=== PATIENT | female | born 1970 | race Two or more races ===

== ENCOUNTER 2022-05-20 15:09 | Emergency (ER) | payer MEDICAID ==
[~2022-05-20] VITALS: Ht 154.9 cm; Wt 101.1 kg
[2022-05-20 18:45] VITALS: BP 135/78
[2022-05-20] MEDS ORDERED: DICL75TA2 PO (20:18)
== END 2022-05-20 20:32 | disposition home or self-care (01) ==
LOC: ER 15:13
DX: S50.01XA Contusion of right elbow, initial encounter (principal); M79.671 Pain in right foot; W20.8XXA Other cause of strike by thrown, projected or falling object, initial encounter; Y93.89 Activity, other specified; Y92.89 Other specified places as the place of occurrence of the external cause; Y99.8 Other external cause status
CPT/HCPCS: 73080; 73630

== ENCOUNTER 2022-12-01 21:12 | Inpatient (IN) | payer MEDICAID ==
[~2022-12-01] VITALS: Ht 154.9 cm; Wt 106.3 kg
[~2022-12-01 21:12] MED LIST: DICL75TA2 PO
[2022-12-01 21:39] LABS: Basophils # (auto) 0 10 ^3/uL (0-0.2); Basophils % (auto) 0.6 % (0.0-2.0); Eosinophils # (auto) 0.1 10 ^3/uL (0-0.8); Eosinophils % (auto) 1.5 % (0.0-7.0); Hematocrit 37.7 % (36.0-46.0); Lymphocytes # (auto) 3.1 10 ^3/uL (0.4-5.4); Lymphocytes % (auto) 40.6 % (10.0-50.0); Mean Corpuscular Hemoglobin 30.7 pg (28.0-32.0); Mean Corpuscular Hgb Conc. 34.5 g/dL (32.0-36.0); Mean Corpuscular Volume 88.9 fL (80.0-100.0); Monocytes # (auto) 0.4 10 ^3/uL (0-1.3); Monocytes % (auto) 5.1 % (0.0-12.0); Neutrophils # (auto) 3.9 10 ^3/uL (1.6-8.6); Neutrophils % (auto) 52.2 % (37.0-80.0); Nucleated Red Blood Cells % 0.2 %; Red Blood Cells 4.24 10^6/uL (4.0-5.20); Red Cell Distribution Width 13.3 % (11.8-14.3); White Blood Cell 7.5 10^3/uL (4.4-10.8)
[2022-12-01 21:55] LABS: Albumin 3.6 g/dL (3.4-5.0); BUN/Creatinine Ratio 21.9; Calcium 8.8 mg/dL (8.5-10.1); Potassium 3.1 mmol/L (3.5-5.1)
[2022-12-01 21:58] LABS: Bilirubin, Total 0.9 mg/dL (0.2-1.0); Total Protein 7.3 g/dL (6.4-8.2)
[2022-12-01 22:04] LABS: INR 1.08 (0.9-1.15); Partial Thromboplastin Time 32.7 sec (24.6-33.4)
[2022-12-01] MEDS ORDERED: POTASSIUM CHLORIDE 20 MEQ in D5W/LACTATED RINGERS 1,000 ML IV SCH (22:45)
[2022-12-01] MEDS ORDERED: LACTATED RINGER'S 1,000 ML IV ONE (23:15)
[2022-12-01] MEDS ORDERED: POTASSIUM EFFERVESENT TAB 25 MEQ PO ONE (23:15)
[2022-12-02] MEDS ORDERED: NITROGLYCERIN 0.4 MG SL TAB SL PRN (06:15)
[2022-12-02] MEDS ORDERED: HYDROcodone-ACET 5/325MG TAB PO PRN (06:15)
[2022-12-02] MEDS ORDERED: DOCUSATE SOD 100 MG CAP PO PRN (06:15)
[2022-12-02] MEDS ORDERED: ACETAMINOPHEN 325 MG TAB PO PRN (06:15)
[2022-12-02] MEDS ORDERED: MORPHINE SULFATE INJ 2 MG/ml SYRG IV PRN ×2 (06:15)
[2022-12-02] MEDS ORDERED: ONDANSETRON HCL 4 MG/2 ML VIAL IV PRN (06:15)
[2022-12-02 06:18] LABS: Albumin 3.2 g/dL (3.4-5.0); Calcium 8.8 mg/dL (8.5-10.1); Potassium 3.3 mmol/L (3.5-5.1)
[2022-12-02 06:20] LABS: BUN/Creatinine Ratio 19.6
[2022-12-02 06:23] LABS: Bilirubin, Total 1.1 mg/dL (0.2-1.0); Total Protein 6.8 g/dL (6.4-8.2)
[2022-12-02 07:39] LABS: Basophils # (auto) 0 10 ^3/uL (0-0.2); Basophils % (auto) 0.2 % (0.0-2.0); Eosinophils # (auto) 0.1 10 ^3/uL (0-0.8); Eosinophils % (auto) 2.1 % (0.0-7.0); Hematocrit 37.1 % (36.0-46.0); Hemoglobin 12.6 g/dL (12.2-16.2); Lymphocytes % (auto) 48.7 % (10.0-50.0); Mean Corpuscular Hemoglobin 30.4 pg (28.0-32.0); Mean Corpuscular Volume 89.5 fL (80.0-100.0); Monocytes # (auto) 0.5 10 ^3/uL (0-1.3); Monocytes % (auto) 7.2 % (0.0-12.0); Neutrophils # (auto) 2.6 10 ^3/uL (1.6-8.6); Neutrophils % (auto) 41.8 % (37.0-80.0); Nucleated Red Blood Cells % 0.3 %; Red Blood Cells 4.14 10^6/uL (4.0-5.20); Red Cell Distribution Width 13.3 % (11.8-14.3); White Blood Cell 6.2 10^3/uL (4.4-10.8)
[2022-12-02] MEDS: ASPirin 81 mg TAB PO SCH (10:19)
[2022-12-02] MEDS: FAMOTIDINE (10MG/ML) 2ML VL IV SCH ×2 (10:19→21:28)
[2022-12-02] MEDS: amLODIPine BESYLATE 5 MG TAB PO SCH (10:21)
[2022-12-02] MEDS: SODIUM CHLOR 0.9% PF (SALINE LOCK) 10ML VIAL/SYR IV SCH ×2 (13:34→21:28)
[2022-12-02] MEDS ORDERED: POTASSIUM CHL 20 Meq TABLET PO ONE (17:30)
[2022-12-02 20:25] LABS: Urine Bacteria NONE SEEN /hpf (None Seen); Urine Blood Negative /uL (Negative); Urine Mucus FEW (None Seen); Urine Specific Gravity 1.016 (1.001-1.035); Urine WBC 5 /hpf (0 - 5)
[2022-12-02 21:22] LABS: Alcohol, Urine < 3.0 mg/dL (0-10); Amphetamine Screen, Urine NEGATIVE (NEGATIVE); Barbiturate Scree,Urine NEGATIVE (NEGATIVE); Benzodiazephine Screen, Urine NEGATIVE (NEGATIVE); Cannabinoid Screen, Urine NEGATIVE (NEGATIVE); Cocaine Screen, Urine NEGATIVE (NEGATIVE); Opiate Scree,Urine NEGATIVE (NEGATIVE); Phencyclidine Screen, Urine NEGATIVE (NEGATIVE)
[2022-12-03] VITALS (9 sets, daily range): BP systolic 125–141; BP diastolic 51–75
[2022-12-03] MEDS ORDERED: OMEP-260 PO (01:26)
[2022-12-03] MEDS ORDERED: AMLO-489 PO (01:26)
[2022-12-03] MEDS ORDERED: ASPI1TAB37 PO (01:26)
[2022-12-03 06:06] LABS: Basophils # (auto) 0 10 ^3/uL (0-0.2); Basophils % (auto) 0.2 % (0.0-2.0); Eosinophils # (auto) 0.1 10 ^3/uL (0-0.8); Eosinophils % (auto) 2.3 % (0.0-7.0); Hematocrit 37.2 % (36.0-46.0); Hemoglobin 12.7 g/dL (12.2-16.2); Lymphocytes # (auto) 2.8 10 ^3/uL (0.4-5.4); Lymphocytes % (auto) 47.1 % (10.0-50.0); Mean Corpuscular Hemoglobin 30.7 pg (28.0-32.0); Mean Corpuscular Volume 90.2 fL (80.0-100.0); Monocytes # (auto) 0.4 10 ^3/uL (0-1.3); Monocytes % (auto) 7.3 % (0.0-12.0); Neutrophils # (auto) 2.6 10 ^3/uL (1.6-8.6); Neutrophils % (auto) 43.1 % (37.0-80.0); Nucleated Red Blood Cells % 0.3 %; Red Blood Cells 4.12 10^6/uL (4.0-5.20); Red Cell Distribution Width 13.3 % (11.8-14.3)
[2022-12-03] MEDS: SODIUM CHLOR 0.9% PF (SALINE LOCK) 10ML VIAL/SYR IV SCH ×3 (06:23→21:54)
[2022-12-03 06:28] LABS: Potassium 3.7 mmol/L (3.5-5.1)
[2022-12-03 06:38] LABS: Albumin 3.3 g/dL (3.4-5.0); BUN/Creatinine Ratio 23.6; Calcium 8.9 mg/dL (8.5-10.1)
[2022-12-03 06:40] LABS: Bilirubin, Total 1.3 mg/dL (0.2-1.0); Total Protein 6.6 g/dL (6.4-8.2)
[2022-12-03] MEDS: amLODIPine BESYLATE 5 MG TAB PO SCH (09:04)
[2022-12-03] MEDS: ASPirin 81 mg TAB PO SCH (09:04)
[2022-12-03] MEDS: FAMOTIDINE (10MG/ML) 2ML VL IV SCH ×2 (09:04→21:54)
[2022-12-03] MEDS ORDERED: NITR0.4S29 SL (14:17)
[2022-12-04 05:00] VITALS: BP 141/59
[2022-12-04] MEDS: SODIUM CHLOR 0.9% PF (SALINE LOCK) 10ML VIAL/SYR IV SCH ×2 (06:56→14:02)
[2022-12-04 07:30] VITALS: BP 133/69
[2022-12-04 08:39] VITALS: BP 133/69
[2022-12-04] MEDS: FAMOTIDINE (10MG/ML) 2ML VL IV SCH ×2 (09:33→09:46)
[2022-12-04] MEDS: ASPirin 81 mg TAB PO SCH (09:41)
[2022-12-04] MEDS: amLODIPine BESYLATE 5 MG TAB PO SCH (09:41)
[2022-12-04 12:33] VITALS: BP 133/63
== END 2022-12-04 12:50 | disposition home or self-care (01) | DRG 203 ==
LOC: ER 21:12 → TELE 12-02 06:14 → TELE-EAST 12-02 23:18
PROVIDERS: ADMIT Nurse Practitioner Family; ATTEND Internal Medicine
DX: R07.89 Other chest pain (principal); E87.8 Other disorders of electrolyte and fluid balance, not elsewhere classified; E66.01 Morbid (severe) obesity due to excess calories; F41.0 Panic disorder [episodic paroxysmal anxiety]; E87.6 Hypokalemia; I10 Essential (primary) hypertension; M06.9 Rheumatoid arthritis, unspecified; R73.9 Hyperglycemia, unspecified; R00.2 Palpitations; Z68.41 Body mass index [BMI] 40.0-44.9, adult; Z20.822 Contact with and (suspected) exposure to COVID-19
CPT/HCPCS: 36415; 71046; 80053; 80307; 81001; 83036; 83735; 83880; 84484; 85025; 85379; 85610; 85652; 85730; 86141; 87426; 93005; 96361; 96374; 96375; G0378; J3490

== ENCOUNTER 2023-02-18 15:23 | Emergency (ER) | payer MEDICAID ==
[~2023-02-18] VITALS: Ht 154.9 cm; Wt 102.7 kg
[~2023-02-18 15:23] MED LIST changes: +AMLO1TAB22 PO; +ASPI-628 PO; +NITR0.4S29 SL; +OMEP1CAP70 PO
[2023-02-18 17:12] VITALS: BP 119/59
[2023-02-18] MEDS ORDERED: KETOROLAC TROMETH 60MG/2ML VIAL IM ONE (17:45)
[2023-02-18] MEDS ORDERED: IBUP-1456 PO (18:04)
[2023-02-18] MEDS ORDERED: METH-1182 PO (18:04)
== END 2023-02-18 18:10 | disposition home or self-care (01) ==
LOC: ER 15:23
DX: S16.1XXA Strain of muscle, fascia and tendon at neck level, initial encounter (principal); R51.9 Headache, unspecified; M19.90 Unspecified osteoarthritis, unspecified site; I10 Essential (primary) hypertension; X58.XXXA Exposure to other specified factors, initial encounter; Y93.89 Activity, other specified; Y92.89 Other specified places as the place of occurrence of the external cause; Y99.8 Other external cause status
CPT/HCPCS: 70450; 96372; 99285; J1885

== ENCOUNTER 2024-02-14 14:21 | Emergency (ER) | payer MEDICAID ==
[~2024-02-14] VITALS: Ht 154.9 cm; Wt 100.0 kg
[~2024-02-14 14:21] MED LIST changes: +IBUP-1456 PO; +METH-1182 PO
[2024-02-14 14:43] LABS: Basophils # (auto) 0 10 ^3/uL (0-0.2); Basophils % (auto) 0.3 % (0.0-2.0); Eosinophils # (auto) 0.1 10 ^3/uL (0-0.8); Eosinophils % (auto) 2.1 % (0.0-7.0); Hemoglobin 14.2 g/dL (12.2-16.2); Lymphocytes # (auto) 2.7 10 ^3/uL (0.4-5.4); Lymphocytes % (auto) 42.5 % (10.0-50.0); Mean Corpuscular Hemoglobin 30.5 pg (28.0-32.0); Mean Corpuscular Hgb Conc. 33.8 g/dL (32.0-36.0); Mean Corpuscular Volume 90.4 fL (80.0-100.0); Monocytes # (auto) 0.4 10 ^3/uL (0-1.3); Monocytes % (auto) 6.4 % (0.0-12.0); Neutrophils # (auto) 3.1 10 ^3/uL (1.6-8.6); Neutrophils % (auto) 48.7 % (37.0-80.0); Nucleated Red Blood Cells % 0.1 %; Red Blood Cells 4.64 10^6/uL (4.0-5.20); Red Cell Distribution Width 13.3 % (11.8-14.3); White Blood Cell 6.4 10^3/uL (4.4-10.8)
[2024-02-14 15:05] LABS: Alanine Aminotransferase 34 U/L (7-40); Albumin 4.4 g/dL (3.2-4.8); Alkaline Phosphatase 113 U/L (46-116); Anion Gap 7 (5-15); Aspartate Aminotransferase 28 U/L (13-40); BUN/Creatinine Ratio 10.3 (10.0-20.0); Blood Urea Nitrogen 7 mg/dL (9-23); Calcium 9.4 mg/dL (8.5-10.1); Carbon Dioxide 27 mmol/L (20-30); Chloride 109 mmol/L (98-107); Glucose 103 mg/dL (74-106); Potassium 3.6 mmol/L (3.5-5.1); Sodium 143 mmol/L (136-145)
[2024-02-14 15:06] LABS: Total Protein 7.1 g/dL (5.7-8.2)
[2024-02-14 18:07] LABS: Urine Bacteria FEW /hpf (None Seen); Urine Blood Negative /uL (Negative); Urine Clarity Turbid (Clear); Urine Color Yellow (Yellow); Urine Mucus FEW (None Seen); Urine Protein, UAD TRACE (Negative); Urine Specific Gravity 1.027 (1.001-1.035); Urine Urobilinogen Normal (Negative); Urine WBC 20 /hpf (0 - 5)
[2024-02-14 21:07] VITALS: BP 150/67; PULSE 67; RESP 16; TEMP 98.3; O2SAT 100
[2024-02-14] MEDS: ASPirin 325 MG TAB PO ONE (21:08)
[2024-02-14] MEDS: NITROGLYCERIN 0.4 MG SL TAB SL ONE (21:10)
[2024-02-14] MEDS: cefTRIAXone 1GM/50ML D5W 50 ML IV ONE (21:22)
[2024-02-14] MEDS: HYDROcodone-ACET 5/325MG TAB PO ONE (21:30)
== END 2024-02-14 23:18 | disposition left against medical advice (07) ==
LOC: ER 14:21
DX: N39.0 Urinary tract infection, site not specified (principal); R07.89 Other chest pain; I10 Essential (primary) hypertension
CPT/HCPCS: 36415; 71045; 80053; 81001; 83880; 84484; 85025; 85379; 93005; 96365; 99285; J0696